=== PATIENT | male | born 1945 | race Two or more races ===

== ENCOUNTER 2017-12-02 08:35 | Day surgery (SDC) | payer OTHER ==
[~2017-12-02] VITALS: Ht 157.5 cm; Wt 81.6 kg
[~2017-12-02 08:35] MED LIST: ASPI81TA27 PO; SIMV-13 PO; TAMS0.4C36 PO; VALS1TAB56 PO
[2017-12-02] MEDS ORDERED: ceFOXitin 2GM/100ML 100 ML IV ONE (09:10)
[2017-12-02 09:58] LABS: INR 0.97 (0.9-1.15); Partial Thromboplastin Time 25.1 sec (22.64-33.71); Prothrombin Time 10.6 sec (9.37-12.3)
[2017-12-02] MEDS ORDERED: MIDAZOLAM HCL 1MG/1ML-2 ML VIAL ONE (11:07)
[2017-12-02] MEDS ORDERED: ROCURONIUM 10MG/ML 10ML VIAL IV ONE (11:08)
[2017-12-02] MEDS ORDERED: LIDOCAINE W/ EPINEPHRINE 1 % INJ 30ML ONE (12:09)
[2017-12-02] MEDS ORDERED: BUPIVACAINE 0.25% INJ 50ML VIAL ONE (12:09)
[2017-12-02] MEDS ORDERED: LIDOCAINE 1% (LOCAL ANESTH.) PF 5ml SDV ONE (12:23)
[2017-12-02] MEDS ORDERED: SUCCINYLCHOLINE CHLORIDE 20 MG/ML 10ML VIAL IV ONE (12:23)
[2017-12-02] MEDS ORDERED: PROPOFOL 10 MG/ML 20 ML IV ONE (12:26)
[2017-12-02] MEDS ORDERED: fentaNYL CITRATE 100 MCG/2 ML VL ONE (12:49)
[2017-12-02] MEDS ORDERED: NALOXONE HCL 0.4 MG/ML VIAL IV PRN (13:00)
[2017-12-02] MEDS ORDERED: ONDANSETRON HCL 4 MG/2 ML VIAL IV ONE (13:00)
[2017-12-02] MEDS ORDERED: MORPHINE SULFATE 4 MG/ML SYR/VIAL IV PRN (13:00)
[2017-12-02] MEDS ORDERED: NEOSTIGMINE 1 MG/ML INJ (10mg/10ML VIAL) ONE (14:00)
[2017-12-02] MEDS ORDERED: GLYCOPYRROLATE 0.2 MG/ML 1ML VIAL ONE ×2 (14:00→14:07)
[2017-12-02 15:40] VITALS: BP 143/73
== END 2017-12-02 15:50 | disposition home or self-care (01) ==
LOC: SUR 08:35 → EDSEX 10:30 → SUR 15:50
PROVIDERS: ATTEND Urology
DX: C61 Malignant neoplasm of prostate (principal); K66.0 Peritoneal adhesions (postprocedural) (postinfection); I11.9 Hypertensive heart disease without heart failure; E11.9 Type 2 diabetes mellitus without complications; E78.00 Pure hypercholesterolemia, unspecified; F10.99 Alcohol use, unspecified with unspecified alcohol-induced disorder; E66.9 Obesity, unspecified; Z68.32 Body mass index [BMI] 32.0-32.9, adult; Z79.2 Long term (current) use of antibiotics; Z79.82 Long term (current) use of aspirin; Z79.891 Long term (current) use of opiate analgesic; Z79.899 Other long term (current) drug therapy; Z79.1 Long term (current) use of non-steroidal anti-inflammatories (NSAID)
CPT/HCPCS: 36415; 38571; 85610; 85730; 86850; 86900; 86901; J0330; J0694; J2001; J2250; J2704; J3010; J3490; J7030